=== PATIENT | female | born 1965 | race Caucasian/White ===

== ENCOUNTER 2019-05-11 22:16 | Emergency (ER) | payer OTHER ==
[2019-05-11] MEDS ORDERED: Ondansetron PF 4 MG/2 ML Vial ONE ×2 (22:41→23:38)
[2019-05-11] MEDS ORDERED: Glycopyrrolate 0.4 MG/ 2 ML VIAL ONE (22:41)
[2019-05-11 22:50] LABS: #Lymphocytes 0.9 thou/uL (1.20-3.40); #Monocytes 0.4 thou/uL (0.11-0.59); #Neutrophils 6.1 thou/uL (1.40-6.50); %Basophils 0.4 % (0.0-1.0); %Lymphocytes 12.5 % (21.0-51.0); %Monocytes 5.4 % (0.0-10.0); %Neutrophils 81.6 % (42.0-75.0); Hemoglobin 14.5 g/dL (12.0-16.0); Mean Corpuscular HGB CONC 34.9 g/dL (32.0-36.0); Mean Corpuscular Hemoglobin 30.4 pg (27.0-31.0); Mean Corpuscular Volume 87.3 fL (78.0-98.0); Mean Platelet Volume 6.6 fL (7.4-10.4); Platelet Count 239 thou/uL (130-400); RBC Distribution Width 12.7 % (11.5-14.5); Red Blood Cell (RBC) Count 4.75 mill/uL (4.20-5.40); White Blood Cell (WBC) Count 7.4 thou/uL (4.8-10.8)
[2019-05-11] MEDS ORDERED: Thiamine HCl 200 MG/2 ML VIAL ONE (22:56)
[2019-05-11 22:57] LABS: ALT (SGPT) 30 U/L (8-55); AST (SGOT) 35 U/L (5-34); Albumin 4.8 g/dL (3.5-5.0); Alkaline Phosphatase 113 U/L (40-110); Anion Gap 27 mmol/L (10-20); BUN (Urea Nitrogen) 13 mg/dL (9.8-20.1); Bilirubin, Total 0.8 mg/dL (0.2-1.2); Calc. Creatinine Clearance 0 mL/min (70-130); Calcium 10.1 mg/dL (7.8-10.44); Carbon Dioxide 16 mmol/L (22-29); Chloride 96 mmol/L (98-107); Estimated GFR-MDRD 41; Globulin 3.1 g/dL (2.4-3.5); Glucose 390 mg/dL (70-105); Lipase 19 U/L (8-78); Potassium 3.7 mmol/L (3.5-5.1); Protein, Total 7.9 g/dL (6.0-8.3); Sodium 135 mmol/L (136-145)
[2019-05-11 23:03] LABS: Bilirubin Moderate (Negative); Blood, Urine Moderate (Negative); Clarity Slightly Cloudy (Clear); Glucose, Urine (Dipstick) 500 mg/dL (Negative); Leukocyte Negative (Negative); Nitrite Negative (Negative); Protein, Urine (Dipstick) 100 mg/dL (Neg-Trace); Urobilinogen 0.2 mg/dL (Less than 2)
[2019-05-11 23:09] LABS: Bacteria/HPF 1+ HPF (None Seen); Squamous Epithelial 0-3 HPF (0-3); WBC/HPF 0-3 HPF (0-3)
[2019-05-11] MEDS ORDERED: Insulin Regular 300 UNITS/3 ML VIAL ONE (23:19)
[2019-05-11 23:46] LABS: Base Excess-Venous -10.7 mmol/L (-2.0 to 3.0); vO2 Saturation-calc 74.4 % (60.0-85.0)
[2019-05-11 23:47] LABS: Calcium, Ionized 1.06 mmol/L (See Comments:); Chloride 105 mmol/L (98-107); Hemoglobin - Calc 12.7 g/dL (12.0-16.0); Potassium 3.1 mmol/L (3.5-5.1); Sodium 135 mmol/L (138-145)
[2019-05-11 23:48] LABS: Bicarbonate (HCO3v) 11.7 mmol/L (22.0-28.0); CO2 Tension (PvCO2) 18.6 mmHg (40.0-50.0); T. Carbon Dioxide 12.3 mmol/L (22.0-28.0)
== END 2019-05-11 23:59 | disposition short-term general hospital (02) ==
LOC: BURERS 22:16
DX: E10.10 Type 1 diabetes mellitus with ketoacidosis without coma (principal); Z91.19 Patient's noncompliance with other medical treatment and regimen; K21.9 Gastro-esophageal reflux disease without esophagitis; I10 Essential (primary) hypertension; J45.909 Unspecified asthma, uncomplicated; F31.9 Bipolar disorder, unspecified; F41.9 Anxiety disorder, unspecified; Z79.01 Long term (current) use of anticoagulants; Z79.899 Other long term (current) drug therapy
CPT/HCPCS: 36416; 80053; 81003; 81015; 82330; 82803; 83690; 84484; 85025; 96361; 96374; 96375; 96376; 36415-59; J1815; J2405; J3411